=== PATIENT | female | born 2000 | race Caucasian/White ===

== ENCOUNTER 2025-05-04 22:54 | Emergency (ER) | payer OTHER, SELFPAY ==
[2025-05-04 22:57] VITALS: BP 124/89
[2025-05-04] MEDS: PERCOCET 5/325 1 TABLET PO (23:39)
[2025-05-04] MEDS: NEURONTIN 300 MG PO (23:39)
[2025-05-04] MEDS: TORADOL 60 MG IM (23:40)
--- NOTE | 2025-05-05 00:35 | ED.GENMED ---
History of Present Illness
General
Chief Complaint: Oral/Mouth Problem
Source: patient and family
Exam Limitations: none
Time Seen by Provider: 05/04/25 23:18
Nursing documentation reviewed up to this point in time: agreed with
History of Present Illness
History of Present Illness:
The patient is a 25-year-old female who presents with severe dental pain approximately three hours after a recent root canal procedure earlier today. Despite taking ibuprofen, and 1 oxycodone, the pain persists and worsens. The patient states,
'Nothing is helping.' This current experience is the first occurrence of such severe pain following the procedure, and she describes it as 'the worst.' The initial administration of local anesthesia began to wear off around 6:30 PM. Dental advice
instructed her to return at 11:00 AM the following day if pain persists. 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
She denies swelling or fever. Currently on an antibiotic for local dental infection that was started on Friday, 2 days ago. She denies headache, no sore throat, no difficulty swallowing.
She denies risk of , chronically maintained on control pills and last menstrual period normal and on time 2 weeks ago.
She has been applying local ice.
Past History
Past History
ED Past Medical History: Psychiatric (Anxiety)
ED Past Surgical History: Other (Several root canal procedures)
Social History
Tobacco: Non-smoker
Drug: None
Personal: Single
Living: with family
Employment: Employed
Family History
Family History: Other (Noncontributory)
Phy Exam
Physical Exam
Physical Exam:
GENERAL: 25-year-old female appears her stated age, awake and alert, pleasant, appears in no acute distress. Accompanied by her father.
EYE: pupils equal and reactive. anicteric
NECK: Supple, nontender, no meningismus, no significant adenopathy.
ENT: posterior pharynx is clear, oral mucosa is moist. TM clear b/l, nares patent. Moderate tenderness about the left posterior lower molar, tooth #18. there is an intact dental filling. There is minimal gingival erythema laterally but no soft
tissue swelling. No evidence of abscess formation.
CARDIAC: Regular rate and rhythm. no murmur.
LUNGS: Clear breath sounds bilaterally, no acute respiratory distress, no wheezes/rales/rhonchi
ABDOMEN: Soft, nondistended, without focal tenderness
NEUROLOGICAL: Alert and oriented x3, no focal neuro deficits. Gait is cabrera and steady.
SKIN: Warm and dry, normal color, skin intact. No rash.
MUSCULOSKELETAL: No C/C/E. peripheral pulses are full and equal b/l. No palpable tenderness.
PSYCH: Normal and appropriate interaction.
Course
Orders/Labs/Results
Orders:
Orders
05/04/25 23:31
Gabapentin [Neurontin] 300 mg PO NOW STA
Ketorolac [Toradol] 60 mg IM NOW STA
Oxycodone/Acetaminophen [Percocet 5/325] 1 tablet PO NOW STA
Vital Signs
Initial and Last Documented VS:
Initial Vital Signs
Temp Pulse Resp BP Pulse Ox
98.2 F 101 16 124/89 99
05/04/25 22:57 05/04/25 22:57 05/04/25 22:57 05/04/25 22:57 05/04/25 22:57
Last Documented Vital Signs
Temp Pulse Resp BP Pulse Ox
98.2 F 101 16 124/89 99
05/04/25 22:57 05/04/25 22:57 05/04/25 22:57 05/04/25 22:57 05/04/25 22:57
MDM/Problems Addressed
Differential Diagnosis Includes:
The Differential Diagnosis includes, in no particular order and is not limited to:
1. Post-procedural dental pain
2. Dental infection
3. Nerve damage from the procedure
4. Inflammation of the pulp
5. Periapical abscess
6. Dental trauma
7. Alveolar osteitis
8. Sinusitis-induced dental pain
9. Temporomandibular joint disorder
10. Trigeminal neuralgia
MDM/Problems Addressed:
Acute:
1. Post-procedural dental pain following root canal.
Patient is afebrile and reports no recent fever.
Currently maintained on an antibiotic for treatment of local infection.
Nothing in history nor exam to suggest focal infectious process. No local soft tissue swelling.
I suspect local root irritation and will trial an IM dose of Toradol along with an oral dose of Percocet and a dose of gabapentin.
If this is ineffective, to consider local dental block with bupivacaine.
At this point no indication for laboratory studies nor imaging.
Patient has contacted her dental provider and was recommended to follow-up in the office tomorrow at 11 AM.
*Pulse Oximetry
SaO2: 99
Oxygen Mode of Delivery: Room air
Patient hypoxic: no
*Critical Care Note
Total Time (30-74mins, 75-104mins- exclusive of procedures): Not Applicable
Update Note
Update Note:
00:40
Patient feeling markedly improved.
Resting comfortably.
Recommend she continue ibuprofen 800 mg every 6-8 hours as needed for pain. Continue as needed Oxy IR and will add a short course of gabapentin as well.
Discussed supportive measures, elevating head of bed and continuing with local ice.
Soft diet.
Follow-up with dentist later today at 11 AM as already planned.
ED Attending Note
-
Portions of this chart may have been created with voice recognition software.� Occasional wrong word or��sound alike� substitutions may have occurred due to the inherent limitations of voice recognition software.
Discharge Plan
Departure
Patient Disposition: Home (Routine Discharge)
Date of Disposition: 05/05/25
Time of Disposition: 00:46
Patient with high blood pressure during this ER visit?: No
Condition: Good
Discharge Problem:
dental pain s/p root canal
Instructions: Dental Pain (DC)
Prescriptions:
New
gabapentin 300 mg capsule
300 mg PO BID Qty: 10 0RF
Referrals:
ORVILLE GUTIERREZ [Other]
Activity Restrictions/Additional Instructions:
Continue ibuprofen 800 mg every 6-8 hours as needed for pain.
Continue oxycodone 5 mg 3 times daily as needed for pain, you can take this along with the ibuprofen.
You have been prescribed a short course of gabapentin 300 mg to take twice daily over the next 4 to 5 days.
Elevate head of bed on several extra pillows over the next few days and continue with local ice.
Follow-up with your dental specialist at 11 AM today for recheck.
Interventions
Interventions:
*Risk Screen - Suicide Last Done: 05/04/25 22:57
*General Assessment Last Done: 05/04/25 22:57
*Neglect/Abuse Screening Last Done: 05/04/25 22:57
*ED- Fall Risk Assessment Last Done: 05/04/25 22:57
*ED COVID-19 Vaccine History Last Done: 05/04/25 22:57
*ED Influenza Vaccine History Last Done: 05/04/25 22:57
Discharge Date and Time
Print Language: AMHARIC
[2025-05-05 00:38] VITALS: BP 110/70
== END 2025-05-05 00:55 | disposition home or self-care (01) ==
LOC: EMR 22:54
PROVIDERS: EMERGENCY PHYSICIAN Emergency Medicine
DX: G89.18 Other acute postprocedural pain (principal); F41.9 Anxiety disorder, unspecified
CPT/HCPCS: 99284; 96372